=== PATIENT | male | born 1995 | race Two or more races ===

== ENCOUNTER 2019-03-11 13:54 | Emergency (ER) | payer OTHER ==
[~2019-03-11] VITALS: Ht 167.6 cm; Wt 56.7 kg
--- NOTE | 2019-03-11 13:54 | NUR ---
pt ambulated tp bed 7 with pd
--- NOTE | 2019-03-11 13:55 | NUR ---
[employer] [place] [employer] FOR PRE-BOOK FOR [employer]. PT WAS TACKLED AND C/O RT ANKLE/TOE PAIN. +CMS PEDAL PULSES. PT C/O PAIN 08/04.
[2019-03-11 13:58] VITALS: BP 121/63
[2019-03-11 14:40] VITALS: BP 120/65
--- NOTE | 2019-03-11 14:40 | NUR ---
Patient discharged with v/s stable. Written and verbal after care instructions given and explained. Patient alert, oriented and verbalized understanding of instructions. Ambulatory with steady gait. All questions addressed prior to discharge. ID band removed. Patient advised to follow up with PMD. Opportunity to ask questions provided and answered.ok to [facility] dr cid
== END 2019-03-11 14:40 ==
LOC: MED 13:54
DX: Z02.89 Encounter for other administrative examinations (principal); M25.571 Pain in right ankle and joints of right foot; M79.674 Pain in right toe(s)
CPT/HCPCS: 99283